=== PATIENT | male | born 1955 ===

== ENCOUNTER 2023-09-13 11:12 | Day surgery (SDC) | payer OTHER ==
[~2023-09-13] VITALS: Ht 170.2 cm; Wt 72.0 kg
[2023-09-13] MEDS ORDERED: HYDCHL25 PO (11:26)
[2023-09-13] MEDS ORDERED: METO25ER PO (11:27)
[2023-09-13] MEDS ORDERED: Zocor20 MG PO (11:27)
[2023-09-13] MEDS ORDERED: ASPI81CH PO (11:27)
[2023-09-13] MEDS ORDERED: GLUCOPHAGE1000 M1 PO (11:28)
[2023-09-13] MEDS ORDERED: LEVSOD75 PO (11:28)
[2023-09-13] MEDS ORDERED: 1/2 NS 250ml250 ML (11:29)
[2023-09-13] MEDS ORDERED: Viagra100 MG PO (11:29)
[2023-09-13] MEDS ORDERED: JARDIANCE25 MG PO (11:29)
[2023-09-13] MEDS ORDERED: ALOGLIPTIN25 M1 PO (11:29)
[2023-09-18] MEDS ORDERED: ZESTORETIC 20-1 EACH PO (10:47)
== END 2023-09-13 12:38 | disposition home or self-care (01) ==
LOC: ORSCSDS 11:12
PROVIDERS: Ophthalmology
PROC: 08RJ3JZ Replacement of Right Lens with Synthetic Substitute, Percutaneous Approach (ICD-10-PCS; principal; 2023-09-13 12:30)
DX: E11.36 Type 2 diabetes mellitus with diabetic cataract (principal); H25.11 Age-related nuclear cataract, right eye; I10 Essential (primary) hypertension; E03.9 Hypothyroidism, unspecified; Z79.84 Long term (current) use of oral hypoglycemic drugs; Z79.899 Other long term (current) drug therapy
CPT/HCPCS: J2250; J3010; J3301; J7040; V2632

== ENCOUNTER 2023-09-20 11:12 | Day surgery (SDC) | payer OTHER ==
[~2023-09-20] VITALS: Ht 170.2 cm; Wt 71.5 kg
[~2023-09-20 11:12] MED LIST: 1/2 NS 250ml250 ML; ALOGLIPTIN25 M1 PO; ASPI81CH PO; GLUCOPHAGE1000 M1 PO; HYDCHL25 PO; JARDIANCE25 MG PO; LEVSOD75 PO; METO25ER PO; Viagra100 MG PO; ZESTORETIC 20-1 EACH PO; Zocor20 MG PO
--- NOTE | 2023-09-20 12:10 | NUR ---
09/20/23 1210 Tara Dozier IN AT 1150 NOAH IN AT 1151 CALL LIGHT AT BEDSIDE
--- NOTE | 2023-09-20 13:08 | NUR ---
09/20/23 1307 Marquez Dewitt IV REMOVED INTACT. SITE WNL.
== END 2023-09-20 13:05 | disposition home or self-care (01) ==
LOC: ORSCSDS 11:12
PROVIDERS: Ophthalmology
PROC: 08RK3JZ Replacement of Left Lens with Synthetic Substitute, Percutaneous Approach (ICD-10-PCS; principal; 2023-09-20 12:30)
DX: E11.36 Type 2 diabetes mellitus with diabetic cataract (principal); H25.12 Age-related nuclear cataract, left eye; Z96.1 Presence of intraocular lens; E78.5 Hyperlipidemia, unspecified; E03.9 Hypothyroidism, unspecified; I10 Essential (primary) hypertension; Z79.84 Long term (current) use of oral hypoglycemic drugs; Z79.899 Other long term (current) drug therapy
CPT/HCPCS: 82947; J2250; J3301; J7040; V2632